=== PATIENT | female | born 1935 | race Caucasian/White ===

== ENCOUNTER 2019-07-17 16:22 | Emergency (ER) | payer MEDICARE, OTHER, SELFPAY ==
[2019-07-17 16:39] VITALS: BP 135/49; PULSE 65; RESP 20; TEMP 36.7; O2SAT 97
--- NOTE | 2019-07-17 16:52 | ED.GENADULT ---
HPI - General Adult General Chief complaint: Upper Respiratory Infection Stated complaint: laryngitis/cough Time Seen by Provider: 07/17/19 16:52 Source: patient and RN notes reviewed Mode of arrival: ambulatory Limitations: no limitations History of Present Illness HPI narrative: 84-year-old female presents with daughter Carolynn (okay given to speak freely)Hali complains of upper respiratory infection symptoms, hoarseness, sinus pressure and congestion, wheezing, and cough for 7 days. History of Seasonal Allergies. Cough drops without relief. Hali says her in which is in a [facility] has been ill and she has been having similar upper respiratory symptoms that have worsen over the past 4 days. Constant dry cough with intermittent productive cough (yellow phlegm). Rhinorrhea (yellow drainage) and nasal congestion. Denies sore throat. No high fevers, drooling, neck or throat swelling. No chest pain or shortness of breath. No exacerbation factories. Denies nausea, vomiting, and abdominal pain. Tolerating liquids well. Remains active. Some parts of this dictation were generated by voice recognition software and may contain typographical and/or grammatical inaccuracies. Related Data Home Medications Medication Instructions Recorded Confirmed evolocumab [Repatha Syringe] 140 mg SUBCUT BID 04/26/19 07/17/19 levothyroxine 100 mcg PO DAILY 04/26/19 07/17/19 metoprolol tartrate 25 mg PO BID 04/26/19 07/17/19 Allergies Allergy/AdvReac Type Severity Reaction Status Date / Time Sulfa (Sulfonamide Allergy Intermediate Hives Verified 06/20/19 13:08 Antibiotics) Penicillins Allergy Mild Rash Verified 06/20/19 13:08 cephalexin [From Keflex] Allergy Rash Verified 06/20/19 13:08 Review of Systems Review of Systems: Narrative: CONSTITUTIONAL: Denies fever, chills, sweats. EYES: Denies visual changes, redness, discharge. ENT: Complains of rhinorrhea, congestion, facial pressure and congestion, hoarseness. Denies sore throat, otalgia. CARDIOVASCULAR: Denies chest pain, palpitations, edema. RESPIRATORY: Denies dyspnea. Complains of wheezing, dry cough, intermittent productive cough. GASTROINTESTINAL: Denies abdominal pain, nausea, vomiting, diarrhea. GENITOURINARY: Denies dysuria, hematuria, abnormal discharge. SKIN: Denies rash or itching. MUSCULOSKELETAL: Denies acute back pain, joint pain, or myalgia. NEUROLOGIC: Denies numbness or focal weakness. PSYCHIATRIC: Denies anxiety or depression. All other systems reviewed are negative, except as documented in HPI and below. [facility] Past Medical History Medical History Hypercholesterolemia Hypertension Hypothyroidism Surgical History Surgical History H/O aortic valve replacement Social History Social History Gender identity (if verbalized by the patient): Female Comments At time of signature, agree with nurse past medical, surgical, social, and family history. There is no relevant family history pertinent to the presenting complaint. Exam Narrative: Exam Narrative: GENERAL: This is a well-nourished, well-developed patient, in no apparent distress. Talks in full sentences and ambulates with steady gait without dyspnea. HEAD: normocephalic, atraumatic. EYES: PERRL. Sclera clear/white. Vision is grossly intact. EARS: External ears normal, auditory canals clear and without drainage, TMs normal without perforation. Hearing grossly intact. SINUSES: Mild-moderate tenderness upon palpation to maxillary and frontal sinuses. NOSE: External nose normal with no obvious nasal discharge, nares with mild redness and enlarged turbinates, yellow rhinorrhea. THROAT: Mucous membranes moist, posterior pharynx clear. Mild erythema, tonsils normal. NECK: Neck supple, non-tender without lympha
== END 2019-07-17 17:09 | disposition home or self-care (01) ==
PROVIDERS: Emergency Provider Nurse Practitioner Family
DX: J32.9 Chronic sinusitis, unspecified (principal); J40 Bronchitis, not specified as acute or chronic; J04.0 Acute laryngitis; E78.00 Pure hypercholesterolemia, unspecified; I10 Essential (primary) hypertension; E03.9 Hypothyroidism, unspecified; Z95.2 Presence of prosthetic heart valve
CPT/HCPCS: 99213; G0463

== ENCOUNTER 2019-08-07 15:39 | Outpatient (CLI) | payer MEDICARE, OTHER, SELFPAY ==
[2019-08-07 16:40] LABS: Basophils Absolute Auto 0.1 K/mm3 (0.0-0.1); Basophils Percent Auto 0.7 % (0.2-1.2); Eosinophils Absolute Auto 0.6 K/mm3 (0-0.3); Eosinophils Percent Auto 4.8 % (0-4.4); Hemoglobin 10.8 g/dL (12.0-15.0); Immature Granulocyte Absolute 0.05 K/mm3 (0.00-0.031); Immature Granulocyte Percent A 0.4 % (0-0.5); Lymphocytes Absolute Auto 3.85 K/mm3 (0.9-3.2); Lymphocytes Percent Auto 33.9 % (18.3-44.2); Mean Corpuscular HGB Conc 30.9 g/dl (32-36); Mean Corpuscular Hemoglobin 28.6 pg (26-34); Mean Corpuscular Volume 92.6 fl (80-100); Mean Platelet Volume 9.6 fl (7.4-10.4); Monocytes Absolute Auto 0.7 K/mm3 (0.1-0.6); Monocytes Percent Auto 5.7 % (2.6-8.5); Neutrophils Absolute Auto 6.2 K/mm3 (1.3-6.7); Neutrophils Percent Auto 54.5 % (45.5-73.1); Platelet Count Result 358 k/mm3 (150-375); Red Blood Count 3.78 M/mm3 (4.2-5.4); Red Cell Distribution Width 16.3 % (11.5-14.5); White Blood Count 11.4 K/mm3 (4.5-10.0)
[2019-08-07 16:58] LABS: Blood Urea Nitrogen 31 mg/dL (7-17); Calcium 8.9 mg/dL (8.4-10.2); Carbon Dioxide 26 mmol/L (22-30); Chloride 104 mmol/L (98-107); Estimated Glomerular Filt Rate 29; Glucose 98 mg/dL (65-105); Potassium 5.7 mmol/L (3.4-5.0); Sodium 139 mmol/L (137-145)
== END 2019-08-07 15:40 | disposition home or self-care (01) ==
LOC: ANHLAB 15:46
DX: I25.10 Atherosclerotic heart disease of native coronary artery without angina pectoris (principal); I10 Essential (primary) hypertension
CPT/HCPCS: 36415; 80048; 85025

== ENCOUNTER 2019-08-20 12:14 | Outpatient (CLI) | payer MEDICARE, OTHER, SELFPAY ==
[2019-08-20 12:51] LABS: Potassium 5.5 mmol/L (3.4-5.0)
[2019-08-20 12:57] LABS: Blood Urea Nitrogen 32 mg/dL (7-17); Calcium 8.5 mg/dL (8.4-10.2); Carbon Dioxide 28 mmol/L (22-30); Chloride 102 mmol/L (98-107); Estimated Glomerular Filt Rate 33; Glucose 97 mg/dL (65-105); Sodium 139 mmol/L (137-145)
== END 2019-08-20 12:15 | disposition home or self-care (01) ==
PROVIDERS: PCP Family Medicine; Visit Provider Family Medicine
DX: E87.5 Hyperkalemia (principal)
CPT/HCPCS: 36415; 80048

== ENCOUNTER 2019-08-23 09:28 | Outpatient (CLI) | payer MEDICARE, OTHER, SELFPAY ==
[2019-08-23 10:09] LABS: Blood Urea Nitrogen 26 mg/dL (7-17); Calcium 8.4 mg/dL (8.4-10.2); Carbon Dioxide 27 mmol/L (22-30); Chloride 108 mmol/L (98-107); Estimated Glomerular Filt Rate 39; Glucose 94 mg/dL (65-105); Sodium 139 mmol/L (137-145)
== END 2019-08-23 09:29 | disposition home or self-care (01) ==
PROVIDERS: PCP Family Medicine; Visit Provider Family Medicine
DX: E87.5 Hyperkalemia (principal)
CPT/HCPCS: 36415; 80048

== ENCOUNTER 2020-02-07 15:08 | Emergency (ER) | payer MEDICARE, OTHER, SELFPAY ==
--- NOTE | 2020-02-07 15:24 | ED.FEMALEGU ---
HPI - Female Genitourinary General Chief complaint: Urogenital-Female Stated complaint: pos bladder infection/sinus Time Seen by Provider: 02/07/20 15:24 Source: patient and RN notes reviewed Mode of arrival: ambulatory Limitations: no limitations History of Present Illness HPI Narrative: 84 year old female who [facility] with complaints of urinary frequency , burning with urination for the past 2 days. Patient denies any suprapubic pain or pressure, no flank pain, nausea or vomiting, or any fevers,chills, or sweats. Patient also states that she has had some sinus drainage and pressure, has chronic sinus issues. Patient denies any cough or any shortness of breath reports that she is out of Flonase. MD elicited complaint: dysuria and other (frequency) Pertinent past history: recurrent UTIs Onset (ago): day(s) (2) Location of symptoms: perineum (burning) Severity: mild Female Urogenital Radiation: Non-Radiating Severity scale (1-10): 2 Quality of pain: burning Consistency: intermittent Vaginal discharge: none Vaginal bleeding: none Urinary symptoms: Dysuria and Frequency Exacerbating factors: none Relieving factors: none Associated symptoms: denies other symptoms Treatment prior to arrival: none Sexual activity: No Possible : postmenopausal Related Data Home Medications Medication Instructions Recorded Confirmed evolocumab [Repatha Syringe] 140 mg SUBCUT BID 04/26/19 07/17/19 levothyroxine 100 mcg PO DAILY 04/26/19 02/07/20 metoprolol tartrate 25 mg PO BID 04/26/19 02/07/20 rabeprazole 20 mg PO BID 02/07/20 02/07/20 Allergies Allergy/AdvReac Type Severity Reaction Status Date / Time Sulfa (Sulfonamide Allergy Intermediate Hives Verified 02/07/20 15:26 Antibiotics) Penicillins Allergy Mild Rash Verified 02/07/20 15:26 cephalexin [From Keflex] Allergy Rash Verified 02/07/20 15:26 Review of Systems Review of Systems: Narrative: CONSTITUTIONAL: Denies fever, chills, or sweats. EYES: Denies visual changes, redness, or discharge. ENT: positive rhinorrhea, no congestion, sore throat, or otalgia. CARDIOVASCULAR: Denies chest pain, palpitations, or edema. RESPIRATORY: Denies cough or dyspnea. GASTROINTESTINAL: Denies abdominal pain, nausea, vomiting, or diarrhea. GENITOURINARY: positive dysuria no visible hematuria. SKIN: Denies rash or itching. MUSCULOSKELETAL: Thoracic back back from moving, has moved to assistive living, denies any flank pain, joint pain, or myalgia. NEUROLOGIC: Denies headache, numbness, or weakness. PSYCHIATRIC: Denies anxiety or depression. All systems reviewed & are unremarkable except as noted in HPI and below PMFSH Past Medical History Medical History (Updated 02/07/20 @ 16:11 by Shira Benavides NP) Acid reflux Chronic sinus complaints Hypercholesterolemia Hypertension Hypothyroidism Surgical History Surgical History (Updated 02/07/20 @ 16:11 by Shira Benavides NP) H/O aortic valve replacement H/O: hysterectomy Status post ORIF of fracture of ankle Social History Social History (Updated 02/07/20 @ 16:12 by Shira Benavides NP) Smoking status: Never smoker Living arrangements: assisted living Gender identity (if verbalized by the patient): Female Comments At time of signature, agree with nursing past medical, surgical, social history. There is no relevant family history pertinent to the presenting complaint Exam Narrative: Exam Narrative: GENERAL: Well-appearing, well-nourished, and in no acute distress. HEAD: Normocephalic, atraumatic. EYES: PERRLA and EOMI. ENT: Nares pale, clear rhinorrhea no epistaxis. Mucous membranes moist.TM's normal with good light reflex, no throat redness or tonsil enlargement. NECK: Supple.no lymphadenopathy CHEST: Clear to auscultation. No respiratory distress. HEART: Regular rate and rhythm. No murmur heard. Normal peripheral pulses. ABDOMEN: Soft, nontender, nondistended, normal active bowel sounds,some stated
[2020-02-07 15:33] VITALS: BP 180/83; PULSE 69; RESP 20; TEMP 36.1; O2SAT 97
== END 2020-02-07 16:03 | disposition home or self-care (01) ==
PROVIDERS: Emergency Provider Registered Nurse
DX: N39.0 Urinary tract infection, site not specified (principal); J31.0 Chronic rhinitis; K21.9 Gastro-esophageal reflux disease without esophagitis; E78.00 Pure hypercholesterolemia, unspecified; I10 Essential (primary) hypertension; E03.9 Hypothyroidism, unspecified; Z95.2 Presence of prosthetic heart valve
CPT/HCPCS: 81003; 87086; 87088; 99213; G0463

== ENCOUNTER 2020-03-03 09:24 | Outpatient (CLI) | payer MEDICARE, OTHER, SELFPAY ==
[2020-03-03 10:25] LABS: Alanine Aminotransferase 12 U/L (4-35); Albumin Level 3.8 g/dL (3.5-5.1); Alkaline Phosphatase 88 U/L (38-126); Aspartate Amino Transferase 22 U/L (14-36); Bilirubin,Total 0.4 mg/dL (0.2-1.3); Cholesterol 126 mg/dL (0-200); HDL Direct 45 mg/dL; Triglycerides 162 mg/dL (<150)
[2020-03-03 10:38] LABS: LDL Cholesterol Direct 47 mg/dL
== END 2020-03-03 09:25 | disposition home or self-care (01) ==
PROVIDERS: PCP Family Medicine
DX: E78.5 Hyperlipidemia, unspecified (principal)
CPT/HCPCS: 36415; 80061; 80076

== ENCOUNTER 2020-06-10 13:33 | Emergency (ER) | payer MEDICARE, OTHER, SELFPAY ==
--- NOTE | 2020-06-10 13:39 | ED.GENADULT ---
HPI - General Adult General Chief complaint: Upper Respiratory Infection Stated complaint: POSSIBLE SINUS INFECTION Time Seen by Provider: 06/10/20 13:39 Source: patient Mode of arrival: ambulatory Limitations: no limitations History of Present Illness HPI narrative: 84-year-old female patient presents to the [facility] with complaints sinus issues for the past 2 weeks. Patient states she has had a lot of pressure to her head and under her eyes. Patient states that she does typically get sinus issues this time year. Patient states she takes Melinda daily and has been using some prescribed Flonase from her doctor. Patient states it has continued and is now developed into a cough which in the morning she does cough up some green sputum at times. Denies any chest pain or shortness of breath. Denies any fevers, body aches or chills. Patient does live in assisted living facility in which she does get tested for Covid weekly. Patient states she has been tested since she has had the symptoms and have come back negative. Related Data Home Medications Medication Instructions Recorded Confirmed evolocumab [Repatha Syringe] See Rx Instructions .ROUTE .COMPLEX 04/26/19 02/07/20 levothyroxine 100 mcg PO DAILY 04/26/19 02/07/20 metoprolol tartrate 25 mg PO BID 04/26/19 02/07/20 rabeprazole 20 mg PO BID 02/07/20 02/07/20 Allergies Allergy/AdvReac Type Severity Reaction Status Date / Time Sulfa (Sulfonamide Allergy Intermediate Hives Verified 02/07/20 15:26 Antibiotics) Penicillins Allergy Mild Rash Verified 02/07/20 15:26 cephalexin [From Keflex] Allergy Rash Verified 02/07/20 15:26 Review of Systems Review of Systems: Narrative: CONSTITUTIONAL: Denies fever, chills, or sweats. EYES: Denies visual changes, redness, or discharge. ENT: Positive rhinorrhea, congestion, denies sore throat, or otalgia. CARDIOVASCULAR: Denies chest pain, palpitations, or edema. RESPIRATORY: Positive for cough denies dyspnea. GASTROINTESTINAL: Denies abdominal pain, nausea, vomiting, or diarrhea. GENITOURINARY: Denies dysuria or hematuria. SKIN: Denies rash or itching. MUSCULOSKELETAL: Denies back pain, joint pain, or myalgia. NEUROLOGIC: Positive headache, denies numbness, or weakness. PSYCHIATRIC: Denies anxiety or depression. [facility] Past Medical History Medical History Acid reflux Chronic sinus complaints Hypercholesterolemia Hypertension Hypothyroidism Surgical History Surgical History H/O aortic valve replacement H/O: hysterectomy Status post ORIF of fracture of ankle Social History Social History Smoking status: Never smoker Gender identity (if verbalized by the patient): Female Comments At the time of my signature I agree with nursing past medical history, surgical, social, and family history. There is no relevant family history pertinent to the presenting complaint. Exam Narrative: Exam Narrative: GENERAL: Well-appearing, well-nourished, and in no acute distress. HEAD: Normocephalic, atraumatic. Tenderness noted to frontal maxillary sinuses on palpation EYES: PERRLA and EOMI. ENT: Nares clear, no rhinorrhea or epistaxis. Mucous membranes moist. Posterior pharynx with no erythema, tonsillar joint, exudates or lesions present. Bilateral TMs are clear with no erythema or foreign bodies in the canal. NECK: Supple. No lymphadenopathy CHEST: Clear to auscultation. No respiratory distress. Patient able talk clear complete sentences. HEART: Regular rate and rhythm. No murmur heard. Normal peripheral pulses. ABDOMEN: Soft, nontender, nondistended, normal active bowel sounds. EXTREMITIES: Normal range of motion. No edema. SKIN: Warm, dry, no rash. NEURO: No focal deficits. Alert and oriented x3. Course Vital Signs Vital signs: Vital Signs Temperature 36.6 C 05/20
[2020-06-10 13:42] VITALS: BP 102/85; PULSE 95; RESP 20; TEMP 36.6; O2SAT 98
[2020-06-10 13:49] VITALS: BP 102/85; PULSE 95; RESP 20; TEMP 36.6; O2SAT 98
== END 2020-06-10 13:58 ==
PROVIDERS: Emergency Provider Nurse Practitioner Family; PCP Family Medicine
DX: J01.10 Acute frontal sinusitis, unspecified (principal); K21.9 Gastro-esophageal reflux disease without esophagitis; E78.00 Pure hypercholesterolemia, unspecified; I10 Essential (primary) hypertension; E03.9 Hypothyroidism, unspecified; Z95.2 Presence of prosthetic heart valve
CPT/HCPCS: 99213; G0463

== ENCOUNTER 2022-01-30 13:30 | Emergency (ER) | payer MEDICARE, OTHER, SELFPAY ==
--- NOTE | ~2022-01-30 | XR_ITS ---
EXAMINATION: XR wrist RT min 3V INDICATION: Right wrist pain, initial encounter TECHNIQUE: Four views of the right wrist are obtained. COMPARISON: None available FINDINGS: The bones are osteopenic which limits the sensitivity for fracture however none is seen. 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 The soft tissues are unremarkable. IMPRESSION: 1. No acute osseous abnormality comments sensitivity limited by osteopenia. Reviewed, dictated and finalized at location A.
[2022-01-30 13:40] VITALS: BP 122/95; PULSE 84; RESP 18; TEMP 36.3; O2SAT 99
--- NOTE | 2022-01-30 13:40 | ED.GENADULT ---
HPI - General Adult General Chief complaint: Extremity Injury, Upper Stated complaint: Rt Wrist Pain Due to Fall Time Seen by Provider: 01/30/22 13:40 Source: patient Mode of arrival: ambulatory Limitations: no limitations History of Present Illness HPI narrative: 86-year-old female patient presents to the [facility] with complaints of right wrist pain. Patient states that she fell yesterday and states has been having pain to the wrist since then. Patient states she has been having issues with her balance lately and was walking in the grass and fell back went to go and bring her right arm back to brace her fall and landed on her right arm. Patient denies hitting her head or losing consciousness. Patient states after the fall she did take a little bit of Tylenol and they used an Paolo wrap to put around her wrist. Related Data Home Medications Medication Instructions Recorded Confirmed evolocumab 140 mg/mL subcutaneous See Rx Instructions .Route .COMPLEX 04/26/19 01/30/22 syringe (Repatha Syringe) levothyroxine 100 mcg tablet 100 mcg PO DAILY 04/26/19 01/30/22 metoprolol tartrate 25 mg tablet 25 mg PO BID 04/26/19 01/30/22 rabeprazole 20 mg tablet,delayed 20 mg PO BID 02/07/20 01/30/22 release Allergies Allergy/AdvReac Type Severity Reaction Status Date / Time Sulfa (Sulfonamide Allergy Intermediate Hives Verified 01/30/22 13:33 Antibiotics) Penicillins Allergy Mild Rash Verified 01/30/22 13:33 cephalexin [From Keflex] Allergy Rash Verified 01/30/22 13:33 Review of Systems Review of Systems: CONSTITUTIONAL: Denies fever, chills, or sweats. EYES: Denies visual changes, redness, or discharge. ENT: Denies rhinorrhea, congestion, sore throat, or otalgia. CARDIOVASCULAR: Denies chest pain, palpitations, or edema. RESPIRATORY: Denies cough or dyspnea. GASTROINTESTINAL: Denies abdominal pain, nausea, vomiting, or diarrhea. GENITOURINARY: Denies dysuria or hematuria. SKIN: Denies rash or itching. MUSCULOSKELETAL: Denies back pain, joint pain, or myalgia. Positive right wrist pain NEUROLOGIC: Denies headache, numbness, or weakness. PSYCHIATRIC: Denies anxiety or depression. [facility] Past Medical History Medical History Acid reflux Chronic sinus complaints Hypercholesterolemia Hypertension Hypothyroidism Surgical History Surgical History H/O aortic valve replacement H/O: hysterectomy Status post ORIF of fracture of ankle Social History Social History Smoking status: Never smoker Gender identity (if verbalized by the patient): Female Comments At the time of my signature I agree with nursing past medical history, surgical, social, and family history. There is no relevant family history pertinent to the presenting complaint. Exam Narrative: GENERAL: Well-appearing, well-nourished, and in no acute distress. HEAD: Normocephalic, atraumatic. EYES: PERRLA and EOMI. ENT: Nares clear, no rhinorrhea or epistaxis. Mucous membranes moist. NECK: Supple. No lymphadenopathy CHEST: Clear to auscultation. No respiratory distress. HEART: Regular rate and rhythm. No murmur heard. Normal peripheral pulses. ABDOMEN: Soft, nontender, nondistended, normal active bowel sounds. EXTREMITIES: The R wrist is without obvious asymmetry or deformity when compared to the L wrist. No surface trauma, open wounds, slight swelling noted to the medial side of the right wrist. No obvious deformity. No overlying erythema or warmth. No bony crepitus. Patient does have a point of tenderness noted along the right fifth metacarpal. No scaphoid fullness or tenderness to direct palpation or axial load. Normal flex/extension, ulnar/radial deviation. Motor/sensory function of ulnar, radial, median nerves intact. Ulnar and radial pulses intact. Negaitve Phalen's/Tinel's sign. Negative Arleth
== END 2022-01-30 14:10 | disposition home or self-care (01) ==
PROVIDERS: Emergency Provider Nurse Practitioner Family; PCP Family Medicine
DX: S63.501A Unspecified sprain of right wrist, initial encounter (principal); S66.911A Strain of unspecified muscle, fascia and tendon at wrist and hand level, right hand, initial encounter; W19.XXXA Unspecified fall, initial encounter; K21.9 Gastro-esophageal reflux disease without esophagitis; E78.00 Pure hypercholesterolemia, unspecified; I10 Essential (primary) hypertension; E03.9 Hypothyroidism, unspecified
CPT/HCPCS: 73110; 99213; G0463

== ENCOUNTER 2022-07-31 10:50 | Emergency (ER) | payer MEDICARE, OTHER, SELFPAY ==
[2022-07-31 11:02] VITALS: BP 123/66; PULSE 75; RESP 18; TEMP 36.5; O2SAT 100
--- NOTE | 2022-07-31 11:04 | ED.URI ---
HPI - URI/Sore Throat General Chief Complaint: Upper Respiratory Infection Stated Complaint: Headache,Congestion,Nausea Time Seen by Provider: 07/31/22 11:04 Source: patient Mode of arrival: ambulatory Limitations: no limitations History of Present Illness HPI Narrative: 79-year-old female presents with complaint of chronic sinusitis. Reports that her nasal congestion, runny nose, postnasal drainage had been worse the last few weeks. States that she takes Melinda and a nasal steroid spray daily. Over the past week she has had a dry, mild cough. Denies shortness of breath or chest pain. She began feeling dizzy, worsening of sinus pressure 2 days ago. She is concerned that she has a sinus infection. She reports in the past she has had vertigo with her sinus infections. Denies nausea vomiting diarrhea. She is ambulatory with steady gait. Afebrile. All systems reviewed and negative except as noted above. Related Data Home Medications Medication Instructions Recorded Confirmed evolocumab 140 mg/mL subcutaneous See Rx Instructions .Route .COMPLEX 04/26/19 01/30/22 syringe (Repatha Syringe) levothyroxine 100 mcg tablet 100 mcg PO DAILY 04/26/19 07/31/22 metoprolol tartrate 25 mg tablet 25 mg PO BID 04/26/19 07/31/22 rabeprazole 20 mg tablet,delayed 20 mg PO BID 02/07/20 07/31/22 release Allergies Allergy/AdvReac Type Severity Reaction Status Date / Time Sulfa (Sulfonamide Allergy Intermediate Hives Verified 07/31/22 11:05 Antibiotics) Penicillins Allergy Mild Rash Verified 07/31/22 11:05 cephalexin [From Keflex] Allergy Rash Verified 07/31/22 11:05 Review of Systems Review of Systems: CONSTITUTIONAL: Denies fever, chills, or sweats. EYES: Denies visual changes, redness, or discharge. ENT: Reports rhinorrhea, congestion. Denies sore throat, or otalgia. CARDIOVASCULAR: Denies chest pain, palpitations, or edema. RESPIRATORY: Reports cough. Denies dyspnea. GASTROINTESTINAL: Denies abdominal pain, nausea, vomiting, or diarrhea. GENITOURINARY: Denies dysuria or hematuria. SKIN: Denies rash or itching. MUSCULOSKELETAL: Denies back pain, joint pain, or myalgia. NEUROLOGIC: Denies headache, numbness, or weakness. reports dizziness. PSYCHIATRIC: Denies anxiety or depression. All other systems reviewed are negative, except as documented in HPI. [facility] Past Medical History Medical History Acid reflux Chronic sinus complaints Hypercholesterolemia Hypertension Hypothyroidism Surgical History Surgical History H/O aortic valve replacement H/O: hysterectomy Status post ORIF of fracture of ankle Social History Social History Smoking status: Never smoker Living arrangements: assisted living Gender identity (if verbalized by the patient): Female Comments At time of signature, agree with nursing past medical, surgical, social and family history. There is no relevant family history pertinent to the presenting complaint. Exam Narrative: GENERAL: This is a well-nourished, well-developed patient, in no apparent distress. HEAD: normocephalic, atraumatic. EYES: PERRL. Sclera clear/white. Vision is grossly intact. EARS: External ears normal, auditory canals clear and without drainage, fluid bilateral TMs with bubbles. No erythema or perforation. NOSE: External nose normal with Thick yellow nasal drainage, erythema to nares, bilateral maxillary and frontal sinus tenderness. THROAT: Mucous membranes moist, Mild erythema postnasal drainage. NECK: Neck supple, non-tender without lymphadenopathy, masses or thyromegaly. CARDIOVASCULAR: Regular rate and rhythm without murmurs, gallops, or rubs. RESPIRATORY: Clear to auscultation. Breath sounds equal bilaterally. No wheezes, rales, or rhonchi. SKIN: warm, Dry, intact with no suspicious lesions o
== END 2022-07-31 11:28 | disposition home or self-care (01) ==
PROVIDERS: Emergency Provider Nurse Practitioner Family
DX: J01.90 Acute sinusitis, unspecified (principal); Z20.822 Contact with and (suspected) exposure to COVID-19; R42 Dizziness and giddiness; K21.9 Gastro-esophageal reflux disease without esophagitis; E78.00 Pure hypercholesterolemia, unspecified; I10 Essential (primary) hypertension; E03.9 Hypothyroidism, unspecified; Z95.2 Presence of prosthetic heart valve
CPT/HCPCS: 87426; 87804; 99213; C9803; G0463

== ENCOUNTER 2022-09-19 19:41 | Emergency (ER) | payer MEDICARE, OTHER, SELFPAY ==
[2022-09-19 19:51] VITALS: BP 152/83; PULSE 57; RESP 18; TEMP 36.1; O2SAT 98
[2022-09-19 21:19] LABS: Basophils Percent Auto 0.1 % (0.2-1.2); Hematocrit 39.8 % (37.0-47.0); Hemoglobin 12.7 g/dL (12.0-15.0); Immature Granulocyte Absolute 0.09 K/mm3 (0.00-0.031); Immature Granulocyte Percent A 0.7 % (0-0.5); Lymphocytes Absolute Auto 1.64 K/mm3 (0.9-3.2); Mean Corpuscular HGB Conc 31.9 g/dl (32-36); Mean Corpuscular Hemoglobin 31.2 pg (26-34); Mean Corpuscular Volume 97.8 fl (80-100); Mean Platelet Volume 10.2 fl (7.4-10.4); Monocytes Absolute Auto 0.5 K/mm3 (0.1-0.6); Monocytes Percent Auto 3.9 % (2.6-8.5); Neutrophils Absolute Auto 11.4 K/mm3 (1.3-6.7); Neutrophils Percent Auto 83.3 % (45.5-73.1); Platelet Count Result 296 k/mm3 (150-375); Red Blood Count 4.07 M/mm3 (4.2-5.4); Red Cell Distribution Width 15.1 % (11.5-14.5); White Blood Count 13.7 K/mm3 (4.5-10.0)
== END 2022-09-19 21:15 | disposition left against medical advice (07) ==
PROVIDERS: Emergency Medicine; PCP Family Medicine
DX: J95.830 Postprocedural hemorrhage of a respiratory system organ or structure following a respiratory system procedure (principal)
CPT/HCPCS: 36415; 85025; 99199

== ENCOUNTER 2022-12-09 13:24 | Emergency (ER) | payer MEDICARE, OTHER, SELFPAY ==
[2022-12-09 13:40] VITALS: BP 148/65; PULSE 68; RESP 18; TEMP 36.4; O2SAT 99
--- NOTE | 2022-12-09 14:11 | ED.URI ---
HPI - URI/Sore Throat General Chief Complaint: Upper Respiratory Infection Stated Complaint: ear pain Time Seen by Provider: 12/09/22 14:00 Source: patient Mode of arrival: ambulatory Limitations: no limitations History of Present Illness HPI Narrative: 87-year-old female presents with complaint of sinus congestion, sinus pressure, Ear pressure, postnasal drainage, sore throat, dry cough for the past 10 days. Patient states I have a sinus infection . Patient requesting Z-Dagoberto. Denies chest pain shortness of breath. Afebrile. Using Melinda and Flonase. All systems reviewed and negative except as noted above. Related Data Home Medications Medication Instructions Recorded Confirmed evolocumab 140 mg/mL subcutaneous See Rx Instructions .Route .COMPLEX 04/26/19 12/09/22 syringe (Repatha Syringe) levothyroxine 100 mcg tablet 100 mcg PO DAILY 04/26/19 12/09/22 metoprolol tartrate 25 mg tablet 25 mg PO BID 04/26/19 12/09/22 rabeprazole 20 mg tablet,delayed 20 mg PO BID 02/07/20 12/09/22 release Allergies Allergy/AdvReac Type Severity Reaction Status Date / Time Sulfa (Sulfonamide Allergy Intermediate Hives Verified 12/09/22 13:53 Antibiotics) Penicillins Allergy Mild Rash Verified 12/09/22 13:53 cephalexin [From Keflex] Allergy Rash Verified 12/09/22 13:53 Review of Systems Review of Systems: CONSTITUTIONAL: Denies fever, chills, or sweats. reports fatigue. EYES: Denies visual changes, redness, or discharge. ENT: reports rhinorrhea, congestion, sinus pressure, sore throat, ear pressure bilaterally CARDIOVASCULAR: Denies chest pain, palpitations, or edema. RESPIRATORY: Reports dry cough. Denies dyspnea. GASTROINTESTINAL: Denies abdominal pain, nausea, vomiting, or diarrhea. GENITOURINARY: Denies dysuria or hematuria. SKIN: Denies rash or itching. MUSCULOSKELETAL: Denies back pain, joint pain, or myalgia. NEUROLOGIC: Denies headache, numbness, or weakness. PSYCHIATRIC: Denies anxiety or depression. All other systems reviewed are negative, except as documented in HPI. [facility] Past Medical History Medical History Acid reflux Chronic sinus complaints Hypercholesterolemia Hypertension Hypothyroidism Surgical History Surgical History H/O aortic valve replacement H/O: hysterectomy Status post ORIF of fracture of ankle Social History Social History Smoking status: Never smoker Living arrangements: assisted living Gender identity (if verbalized by the patient): Female Comments At time of signature, agree with nursing past medical, surgical, social and family history. There is no relevant family history pertinent to the presenting complaint. Exam Narrative: GENERAL: This is a well-nourished, well-developed patient, in no apparent distress. HEAD: normocephalic, atraumatic. EYES: PERRL. Sclera clear/white. Vision is grossly intact. EARS: External ears normal, auditory canals clear and without drainage, fluid, bulging to bilateral TMs. No perforation bilateral. NOSE: External nose normal with Moderate congestion, erythema and swelling to bilateral nares. Bilateral maxillary sinus tenderness. THROAT: Mucous membranes moist, Erythema postnasal drainage. NECK: Neck supple, non-tender without lymphadenopathy, masses or thyromegaly. CARDIOVASCULAR: Regular rate and rhythm without murmurs, gallops, or rubs. RESPIRATORY: Clear to auscultation. Breath sounds equal bilaterally. No wheezes, rales, or rhonchi. SKIN: warm, Dry, intact with no suspicious lesions or rash, good texture and turgor. NEURO: awake, alert, and oriented to person, place and time. There were no obvious focal neurologic abnormalities. EXTREMITIES: No joint tenderness, effusion, or edema noted. Course Course Level of Care: Express Care Visit Vital S
== END 2022-12-09 14:12 | disposition home or self-care (01) ==
PROVIDERS: Emergency Provider Nurse Practitioner Family; PCP Family Medicine
DX: J01.90 Acute sinusitis, unspecified (principal); K21.9 Gastro-esophageal reflux disease without esophagitis; E78.00 Pure hypercholesterolemia, unspecified; I10 Essential (primary) hypertension; E03.9 Hypothyroidism, unspecified; Z95.2 Presence of prosthetic heart valve
CPT/HCPCS: 99213; G0463

== ENCOUNTER 2023-04-13 09:03 | Emergency (ER) | payer MEDICARE, OTHER, SELFPAY ==
[2023-04-13 09:19] VITALS: BP 130/86; PULSE 62; RESP 16; TEMP 36.2; O2SAT 98
--- NOTE | 2023-04-13 09:28 | ED.SKABFB ---
HPI - Skin/Abscess/Foreign Bdy General Chief complaint: Skin/Abscess/Foreign Body Stated complaint: Rash Time Seen by Provider: 04/13/23 09:19 Source: patient and RN notes reviewed Mode of arrival: ambulatory Limitations: no limitations History of Present Illness HPI narrative: Patient presents today complaining of a 2-3 day history of severely pruritic rash to her chest, abdomen, and back. She has been taking Benadryl with mild relief. Reports a slight improvement in her symptoms. Denies any new household products, foods, medications. Related Data Home Medications Medication Instructions Recorded Confirmed evolocumab 140 mg/mL subcutaneous See Rx Instructions .Route .COMPLEX 04/26/19 12/09/22 syringe (Repatha Syringe) levothyroxine 100 mcg tablet 100 mcg PO DAILY 04/26/19 12/09/22 metoprolol tartrate 25 mg tablet 25 mg PO BID 04/26/19 12/09/22 rabeprazole 20 mg tablet,delayed 20 mg PO BID 02/07/20 12/09/22 release Allergies Allergy/AdvReac Type Severity Reaction Status Date / Time Sulfa (Sulfonamide Allergy Intermediate Hives Verified 12/09/22 13:53 Antibiotics) Penicillins Allergy Mild Rash Verified 12/09/22 13:53 cephalexin [From Keflex] Allergy Rash Verified 12/09/22 13:53 Review of Systems Review of Systems: CONSTITUTIONAL: Denies body aches, fever, chills, or sweats. EYES: Denies visual changes, redness, or discharge. ENT: Denies rhinorrhea, congestion, sore throat, or otalgia. CARDIOVASCULAR: Denies chest pain, palpitations, or edema. RESPIRATORY: Denies cough or dyspnea. GASTROINTESTINAL: Denies abdominal pain, nausea, vomiting, or diarrhea. GENITOURINARY: Denies dysuria or hematuria. SKIN: + pruritic rash MUSCULOSKELETAL: Denies back pain, joint pain, or myalgia. NEUROLOGIC: Denies headache, numbness, tingling, or weakness. PSYCH: Denies depression or anxiety. COUNT INCLUDES THE [facility] Past Medical History Medical History Acid reflux Chronic sinus complaints Hypercholesterolemia Hypertension Hypothyroidism Surgical History Surgical History H/O aortic valve replacement H/O: hysterectomy Status post ORIF of fracture of ankle Social History Social History Smoking status: Never smoker Living arrangements: assisted living Gender identity (if verbalized by the patient): Female Comments At time of signature, I have reviewed and agree with nursing past medical, surgical, social and family history unless otherwise noted. Please see nursing chart for further information. There is no relevant family history pertinent to the presenting complaint Exam Narrative: GENERAL: Well-appearing, well-nourished, and in no acute distress. HEAD: Normocephalic, atraumatic. EYES: EOMI. No redness or drainage. Conjunctivae normal. ENT: Mucous membranes pink and moist. . NECK: Normal AROM. CHEST: No respiratory distress. EXTREMITIES: Normal range of motion. No edema. SKIN: Warm, dry.. Capillary refill normal. Normal skin turgor. Scattered erythematous papular rash to the anterior and posterior trunk. NEURO: No focal deficits. Alert and oriented x3. Gait steady. PSYCH: Normal affect. No signs of depression or anxiety. Course Course Level of Care: Express Care Visit Vital Signs Vital signs: Vital Signs Temperature 97.1 F L 04/13/23 09:19 Pulse Rate 62 04/13/23 09:19 Respiratory Rate 16 04/13/23 09:19 Blood Pressure 130/86 04/13/23 09:19 Pulse Oximetry 98 04/13/23 09:19 Temperature 97.1 F L 04/13/23 09:19 Pulse Rate 62 04/13/23 09:19 Respiratory Rate 16 04/13/23 09:19 Blood Pressure 130/86 04/13/23 09:19 Pulse Oximetry 98 04/13/23 09:19 Reviewed MDM - Skin/Abscess/Foreign Bdy MDM Narrative Medical decision making narrative: Source of the rash is unknown. Prescriptio
== END 2023-04-13 09:46 | disposition home or self-care (01) ==
PROVIDERS: Emergency Provider Nurse Practitioner; PCP Family Medicine
DX: L30.9 Dermatitis, unspecified (principal); K21.9 Gastro-esophageal reflux disease without esophagitis; E78.00 Pure hypercholesterolemia, unspecified; I10 Essential (primary) hypertension; E03.9 Hypothyroidism, unspecified; Z95.2 Presence of prosthetic heart valve
CPT/HCPCS: 99213; G0463

== ENCOUNTER 2024-01-23 13:22 | Emergency (ER) | payer MEDICARE, OTHER, SELFPAY ==
--- NOTE | ~2024-01-23 | XR_ITS ---
XR chest 2V Ordering provider: Rosamaria Claros APRN History: 88 years Female with . cough, back pains . Comparison: None. FINDINGS: MEDIASTINUM: The cardiac silhouette is not enlarged. Postoperative changes in the mediastinum. LUNGS: No infiltrates, effusions or pneumothorax. Prominent markings in the lower lobes. Early pneumonia is not excluded. Underlying emphysematous salcedo ges. OTHER: No free air under the diaphragm. IMPRESSION: Prominent markings in the lower lobes with possibility of early pneumonia is not excluded. Reviewed, dictated and finalized at location A. IMPRESSION: Prominent markings in the lower lobes with possibility of early pneumonia is no t excluded.
[2024-01-23 13:43] VITALS: BP 134/53; PULSE 56; RESP 16; TEMP 36.2; O2SAT 98
--- NOTE | 2024-01-23 14:04 | ED.URI ---
HPI - URI/Sore Throat General Chief Complaint: Upper Respiratory Infection Stated Complaint: chest congestion Time Seen by Provider: 01/23/24 14:17 Source: patient Mode of arrival: ambulatory Limitations: no limitations History of Present Illness HPI Narrative: 88-year-old female with history of hypertension aortic valve replacement presented for complaint of worsening cough and tightness in chest when taking deep breaths over the past few weeks. She states she has a chronic cough that has been worse lately due to allergies. Endorses occasional fatigue, ache to the mid upper back, and possible wheezing. Denies shortness of breath, nausea, vomiting, diarrhea, fevers or lethargy. Has been using her inhaler. Related Data Home Medications Medication Instructions Recorded Confirmed evolocumab 140 mg/mL subcutaneous See Rx Instructions .Route .COMPLEX 04/26/19 01/23/24 syringe (Repatha Syringe) levothyroxine 100 mcg tablet 100 mcg PO DAILY 04/26/19 01/23/24 metoprolol tartrate 25 mg tablet 25 mg PO BID 04/26/19 01/23/24 rabeprazole 20 mg tablet,delayed 20 mg PO BID 02/07/20 01/23/24 release albuterol sulfate 90 mcg/actuation 90 mcg inhalation DIRECTED 01/23/24 01/23/24 aerosol inhaler aspirin 81 mg tablet,delayed mg 01/23/24 release (Adult Low Dose Aspirin) fexofenadine 60 mg tablet 60 mg PO Q12H 01/23/24 01/23/24 Allergies Allergy/AdvReac Type Severity Reaction Status Date / Time Sulfa (Sulfonamide Allergy Intermediate Hives Verified 12/09/22 13:53 Antibiotics) Penicillins Allergy Mild Rash Verified 12/09/22 13:53 cephalexin [From Keflex] Allergy Rash Verified 12/09/22 13:53 Review of Systems Review of Systems: CONSTITUTIONAL: Denies body aches, fever, chills, or sweats. EYES: Denies visual changes, redness, or discharge. ENT: Reports rhinorrhea, congestion, denies sore throat, or otalgia. CARDIOVASCULAR: Denies chest pain, palpitations, or edema. RESPIRATORY: Reports cough, denies sob GASTROINTESTINAL: Denies abdominal pain, nausea, vomiting, or diarrhea. SKIN: Denies rash, itching, or wounds. MUSCULOSKELETAL: Reports upper back pain, denies joint pain, or myalgia. NEUROLOGIC: Denies headache, numbness, tingling, or weakness. All systems reviewed & are unremarkable except as noted in HPI and below PMFSH Past Medical History Medical History Acid reflux Chronic sinus complaints Hypercholesterolemia Hypertension Hypothyroidism Surgical History Surgical History H/O aortic valve replacement H/O: hysterectomy Status post ORIF of fracture of ankle Social History Social History Smoking status: Never smoker Living arrangements: assisted living Gender identity (if verbalized by the patient): Female Comments At time of signature, I have reviewed and agree with nursing past medical, surgical, social and family history unless otherwise noted. Please see nursing chart for further information. There is no relevant family history pertinent to the presenting complaint Exam Narrative: GENERAL: Well-appearing, in no acute distress. EYES: EOMI. No redness or drainage. Conjunctivae normal. ENT: Mucous membranes pink and moist. No rhinorrhea. TMs normal bilaterally. Throat normal. Uvula midline. NECK: Normal AROM. Supple. CHEST: No respiratory distress. Faint scattered crackles HEART: Regular rate and rhythm. No murmur appreciated. ABDOMEN: Soft, nontender, nondistended, normal active bowel sounds. EXTREMITIES: Normal range of motion. No edema. SKIN: Warm, dry, no rash. Capillary refill normal. Normal skin turgor. NEURO: Alert and oriented x3. Gait steady. PSYCH: Normal affect. Course Course Emergency Course: Patient is aware of diagnosis, understands and agrees to treatment plan. Anticipatory guidanc
== END 2024-01-23 14:42 | disposition home or self-care (01) ==
PROVIDERS: Emergency Provider Nurse Practitioner Family; PCP Family Medicine
DX: J40 Bronchitis, not specified as acute or chronic (principal); K21.9 Gastro-esophageal reflux disease without esophagitis; E78.00 Pure hypercholesterolemia, unspecified; I10 Essential (primary) hypertension; E03.9 Hypothyroidism, unspecified; Z95.2 Presence of prosthetic heart valve
CPT/HCPCS: 71046; 99213; G0463